=== PATIENT | female | born 1935 | race Caucasian/White ===

== ENCOUNTER → 2016-04-03 | Outpatient (CLI) | payer OTHER, MEDICARE ==
[~2016-04-03] MED LIST: ASPI81TA28 PO; ATOR-24 PO; CEPH500C2 PO; CLOP1TAB15 PO; DIGO0.122 PO; DILT-115 PO; EPP3/2 INJ; FRS/40 PO; GLIM1TAB PO; IPRA1AER2 INH; METO1TAB69 PO; SPIR25TA PO; WARF5TAB90 PO
[2016-04-03 14:49] LABS: ALT/SGPT 24 U/L (12-78); BLOOD UREA NITROGEN 16 mg/dl (7-18); BUN/CREATININE RATIO 14.3 (10-20); CALCIUM 8.9 mg/dl (8.5-10.1); CARBON DIOXIDE 23 mmol/L (21-32); CHLORIDE 107 mmol/L (98-107); GLUCOSE 226 mg/dl (70-99); POTASSIUM 4.4 mmol/L (3.5-5.1); SODIUM 142 mmol/L (136-145)
[2016-04-03 14:59] LABS: ALB/GLOB RATIO 0.9 (0.9-2); ALKALINE PHOSPHATASE 92 U/L (45-117); AST/SGOT 19 U/L (15-37)
[2016-04-03 15:13] LABS: BASO % 0.2 %; BASO ABS # 0.02 K/uL (0-0.2); COMPLETE YES; HEMATOCRIT 38.2 % (37-47); IG% 0.1 %; LYMPH % 23.9 %; LYMPH ABS # 2.09 K/uL (1.2-3.4); MEAN CELL VOLUME 83.8 fL (80-100); MEAN CORPUSCULAR HGB CONC 32.2 g/dl (32-36); MEAN PLATELET VOLUME 11.8 fL (7.4-10.4); MONO % 7.8 %; PLATELET COUNT 153 K/uL (130-400); RED BLOOD COUNT 4.56 M/uL (4.2-5.4); WHITE BLOOD COUNT 8.74 K/uL (4.8-10.8)
== END | disposition home or self-care (01) ==
LOC: C.LAB1850 12:50
PROVIDERS: ATTEND Internal Medicine Cardiovascular Disease
DX: I50.9 Heart failure, unspecified (principal); R53.83 Other fatigue; Z51.81 Encounter for therapeutic drug level monitoring; Z79.899 Other long term (current) drug therapy

== ENCOUNTER → 2016-06-01 | Outpatient (CLI) | payer OTHER, MEDICARE ==
[~2016-06-01] MED LIST changes: -CEPH500C2 PO
[2016-06-01 15:01] LABS: ESTIMATED AVERAGE GLUCOSE 217 mg/dl; HA1C FLAG Normal (Normal)
== END | disposition home or self-care (01) ==
LOC: C.LAB1850 13:12
PROVIDERS: ATTEND Internal Medicine
DX: E11.9 Type 2 diabetes mellitus without complications (principal)

== ENCOUNTER → 2016-07-27 | Outpatient (CLI) | payer OTHER, MEDICARE ==
[~2016-07-27] MED LIST changes: +METO100T44 PO; -METO1TAB69 PO
--- NOTE | 2016-08-02 13:20 | CODING QUERY MEDICAL NECESSITY ---
CQSUPPORTING DIAGNOSIS NEEDED A supporting diagnosis is required for the test/procedure performed on this patient in order for us to be reimbursed by the patient's insurance. Please provide a supporting diagnosis for the following test/procedure listed below next to the test name along with your signature. *If there is no additional diagnosis for this patient that would support the following test/procedure please document that below next to the test/procedure. Test(s)/Procedure(s) that require a supporting diagnosis: DOS 07/27/16 GLYCATED HEMOGLOBIN Provider Signature: Date: Thank you Julia Rojas [employer] Once completed, please kindly fax back to [phone] For questions please call [phone]
== END | disposition home or self-care (01) ==
LOC: C.LAB1850 13:31
PROVIDERS: ATTEND Internal Medicine
DX: E78.5 Hyperlipidemia, unspecified (principal); E11.9 Type 2 diabetes mellitus without complications

== ENCOUNTER → 2016-09-11 | Outpatient (CLI) | payer OTHER, MEDICARE ==
[~2016-09-11] MED LIST changes: -METO100T44 PO; +METO1TAB69 PO
[2016-09-11 14:48] LABS: BASO % 0.2 %; BASO ABS # 0.02 K/uL (0-0.2); COMPLETE YES; EOS % 1.4 %; HEMATOCRIT 41.1 % (37-47); IG% 0.2 %; LYMPH % 23.8 %; LYMPH ABS # 1.91 K/uL (1.2-3.4); MEAN CELL VOLUME 84.7 fL (80-100); MEAN CORPUSCULAR HEMOGLOBIN 27.2 pg (25-34); MEAN CORPUSCULAR HGB CONC 32.1 g/dl (32-36); MEAN PLATELET VOLUME 11.6 fL (7.4-10.4); MONO % 8.9 %; NEUT % 65.5 %; PLATELET COUNT 177 K/uL (130-400); RED BLOOD COUNT 4.85 M/uL (4.2-5.4); WHITE BLOOD COUNT 8.02 K/uL (4.8-10.8)
[2016-09-11 15:46] LABS: ALT/SGPT 32 U/L (12-78); AST/SGOT 21 U/L (15-37); BLOOD UREA NITROGEN 14 mg/dl (7-18); BUN/CREATININE RATIO 15.1 (10-20); CALCIUM 9.2 mg/dl (8.5-10.1); CARBON DIOXIDE 23 mmol/L (21-32); CHLORIDE 109 mmol/L (98-107); CHOLESTEROL 113 mg/dl (0-200); CREATININE 0.94 mg/dl (0.60-1.20); GLUCOSE 192 mg/dl (70-99); POTASSIUM 4.1 mmol/L (3.5-5.1); SODIUM 141 mmol/L (136-145); TRIGLYCERIDES 168 mg/dl (0-150); VERY LOW DENSITY LIPOPROT CALC 34 mg/dl
[2016-09-11 15:49] LABS: CHOLESTEROL/HDL RATIO 3.3; HDL CHOLESTEROL 34 mg/dl; LDL CHOLESTEROL CALCULATED 45 mg/dl
== END | disposition home or self-care (01) ==
LOC: C.LAB1850 12:39
PROVIDERS: ATTEND Internal Medicine
DX: E11.9 Type 2 diabetes mellitus without complications (principal)

== ENCOUNTER → 2017-02-25 | Outpatient (CLI) | payer OTHER, MEDICARE ==
[~2017-02-25] MED LIST changes: +METO100T44 PO; -METO1TAB69 PO
[2017-02-25 15:37] LABS: BASO % 0.3 %; BASO ABS # 0.03 K/uL (0-0.2); COMPLETE YES; EOS % 1.2 %; HEMATOCRIT 41.2 % (37-47); IG% 0.2 %; LYMPH % 23.5 %; LYMPH ABS # 2.27 K/uL (1.2-3.4); MEAN CELL VOLUME 86.2 fL (80-100); MEAN CORPUSCULAR HGB CONC 32.5 g/dl (32-36); MEAN PLATELET VOLUME 11.2 fL (7.4-10.4); MONO % 8.2 %; NEUT % 66.6 %; PLATELET COUNT 162 K/uL (130-400); RED BLOOD COUNT 4.78 M/uL (4.2-5.4); WHITE BLOOD COUNT 9.68 K/uL (4.8-10.8)
[2017-02-25 15:49] LABS: ALT/SGPT 25 U/L (12-78); AST/SGOT 18 U/L (15-37); BLOOD UREA NITROGEN 11 mg/dl (7-18); BUN/CREATININE RATIO 11.7 (10-20); CALCIUM 9.1 mg/dl (8.5-10.1); CARBON DIOXIDE 26 mmol/L (21-32); CHLORIDE 107 mmol/L (98-107); CREATININE 0.96 mg/dl (0.60-1.20); GLUCOSE 207 mg/dl (70-99); POTASSIUM 3.8 mmol/L (3.5-5.1); SODIUM 137 mmol/L (136-145)
[2017-02-25 15:59] LABS: CHOLESTEROL 113 mg/dl (0-200); CHOLESTEROL/HDL RATIO 2.8; HDL CHOLESTEROL 41 mg/dl; LDL CHOLESTEROL CALCULATED 39 mg/dl; TRIGLYCERIDES 163 mg/dl (0-150); VERY LOW DENSITY LIPOPROT CALC 33 mg/dl
[2017-02-26 07:18] LABS: ESTIMATED AVERAGE GLUCOSE 266 mg/dl; HA1C FLAG Normal (Normal)
== END | disposition home or self-care (01) ==
LOC: C.LAB1850 14:28
PROVIDERS: ATTEND Internal Medicine
DX: E78.5 Hyperlipidemia, unspecified (principal)

== ENCOUNTER → 2017-04-15 | Outpatient (CLI) | payer OTHER, MEDICARE ==
[2017-04-15 15:48] LABS: BLOOD UREA NITROGEN 16 mg/dl (7-18); CALCIUM 9.2 mg/dl (8.5-10.1); CARBON DIOXIDE 26 mmol/L (21-32); GLUCOSE 274 mg/dl (70-99); POTASSIUM 4.2 mmol/L (3.5-5.1); SODIUM 137 mmol/L (136-145)
== END | disposition home or self-care (01) ==
LOC: C.LAB1850 12:25
PROVIDERS: ATTEND Internal Medicine Cardiovascular Disease
DX: R53.83 Other fatigue (principal); I50.32 Chronic diastolic (congestive) heart failure

== ENCOUNTER → 2017-05-13 | Outpatient (CLI) | payer OTHER, MEDICARE | END | disposition home or self-care (01) | LOC: C.LAB1850 12:27 | PROVIDERS: ATTEND Internal Medicine | DX: E11.9 Type 2 diabetes mellitus without complications (principal) ==

== ENCOUNTER → 2017-06-28 | Outpatient (CLI) | payer OTHER, MEDICARE ==
[2017-06-28 15:50] LABS: HEMATOCRIT 40.5 % (37-47); HEMOGLOBIN 13.1 g/dL (12.0-16.0); MEAN CELL VOLUME 83.5 fL (80-100); MEAN CORPUSCULAR HGB CONC 32.3 g/dl (32-36); MEAN PLATELET VOLUME 11.9 fL (7.4-10.4); PLATELET COUNT 136 K/uL (130-400); RED CELL DISTRIBUTION WIDTH CV 14.8 % (11.5-14.5); RED CELL DISTRIBUTION WIDTH SD 45.4 fL (36.4-46.3)
[2017-06-28 16:10] LABS: ALT/SGPT 24 U/L (12-78); AST/SGOT 17 U/L (15-37); BLOOD UREA NITROGEN 15 mg/dl (7-18); CALCIUM 9.7 mg/dl (8.5-10.1); CARBON DIOXIDE 24 mmol/L (21-32); CREATININE 0.99 mg/dl (0.60-1.20); GLUCOSE 316 mg/dl (70-99); SODIUM 135 mmol/L (136-145)
[2017-06-29 07:22] LABS: HEMOGLOBIN A1C 12.9 % (4.5-5.6)
== END | disposition home or self-care (01) ==
LOC: C.LAB1850 14:36
PROVIDERS: ATTEND Internal Medicine
DX: I50.32 Chronic diastolic (congestive) heart failure (principal); E11.9 Type 2 diabetes mellitus without complications

== ENCOUNTER 2017-11-07 11:06 | Inpatient (IN) | payer OTHER, MEDICARE ==
[2017-11-07] VITALS (31 sets, daily range): BP systolic 69–124; BP diastolic 37–91; PULSE 84–157; TEMP 36.4–36.8; O2SAT 96–100; Ht 166.4 cm; Wt 88.5 kg
[~2017-11-07] VITALS: Ht 166.4 cm; Wt 88.5 kg
[2017-11-07] MEDS ORDERED: SODIUM CHLORIDE 0.9% 1000ML 2,000 ML IV STA (11:24)
[2017-11-07 11:37] LABS: BASO % 0.2 %; BASO ABS # 0.02 K/uL (0-0.2); EOS % 1.1 %; HEMATOCRIT 27.3 % (37-47); HEMOGLOBIN 8.8 g/dL (12.0-16.0); IG# 0.01 K/uL (0.00-0.02); LYMPH % 21.6 %; LYMPH ABS # 2.01 K/uL (1.2-3.4); MEAN CELL VOLUME 89.5 fL (80-100); MEAN CORPUSCULAR HEMOGLOBIN 28.9 pg (25-34); MEAN CORPUSCULAR HGB CONC 32.2 g/dl (32-36); MEAN PLATELET VOLUME 12.3 fL (7.4-10.4); MONO % 4.8 %; MONO ABS # 0.45 K/uL (0.11-0.59); NEUT % 72.2 %; PLATELET COUNT 204 K/uL (130-400); RED CELL DISTRIBUTION WIDTH SD 59.2 fL (36.4-46.3); WHITE BLOOD COUNT 9.29 K/uL (4.8-10.8)
[2017-11-07 11:46] LABS: INR 1.1 (0.9-1.1); PTT PATIENT 29.6 SECONDS (21.0-31.0)
[2017-11-07 11:51] LABS: ALBUMIN 2.1 gm/dl (3.4-5.0); CALCIUM 8.5 mg/dl (8.5-10.1); CREATININE 0.92 mg/dl (0.60-1.20); TOTAL PROTEIN 5.4 gm/dl (6.4-8.2)
[2017-11-07] MEDS ORDERED: LVMI SC (12:00)
[2017-11-07] MEDS ORDERED: APIX1TAB3 PO (12:00)
[2017-11-07] MEDS ORDERED: ATOR-24 PO (12:00)
[2017-11-07] MEDS ORDERED: ASPI81TA28 PO (12:00)
[2017-11-07] MEDS ORDERED: BCTROWC EXT (12:00)
[2017-11-07] MEDS ORDERED: DILT240C57 PO (12:00)
[2017-11-07] MEDS ORDERED: ACET-1693 PO (12:00)
[2017-11-07] MEDS ORDERED: METO50TA8 PO (12:00)
[2017-11-07] MEDS ORDERED: ICU PROTOCOL FOR HYPERGLYCEMIA PRN (12:15)
--- NOTE | 2017-11-07 12:30 | DIAGNOSTIC IMAGING REPORT ---
SINGLE VIEW CHEST CLINICAL HISTORY: GI bleeding. FINDINGS: An AP, portable, upright chest radiograph is compared to study dated 10/22/2015. The examination is degraded by portable technique and patient rotation. The heart is enlarged and there is atherosclerotic calcification of the thoracic aorta. The pulmonary vascular structures noncongested. Chronic interstitial thickening is similar to previous. Left basilar atelectasis is noted. No airspace consolidation or large pleural effusion is identified. No pneumothorax is seen. The skeletal structures are osteopenic. Advanced degenerative change is seen in the shoulders. An indeterminant catheter projects over the upper abdomen. IMPRESSION: Cardiomegaly with no acute cardiopulmonary abnormality. Electronically signed by: Bret Jaffe M.D. 11/07/2017 12:29 PM Dictated Date/Time: 11/07/2017 12:28 PM
[2017-11-07] MEDS ORDERED: PANTOprazole INJ 80 MG in DEXTROSE 5% 100ML IV ONE (13:00)
--- NOTE | 2017-11-07 13:22 | History and Physical ---
History & Physical Date & Time of Service: Nov 07, 2017 at 13:00 Chief Complaint: Active Gi Bleed/Syncope Primary Care Physician: Jeison Shaver D.OKeshav History of Present Illness Source: patient, family Past Medical/Surgical History Medical Problems: (1) A-fib (2) Acute WV, inferior wall (3) Acute WV, lateral wall (4) Acute WV, true posterior wall (5) Atrial fibrillation (6) Atrial fibrillation with RVR (7) Dyspnea on exertion (8) Gastric outlet obstruction (9) GIB (gastrointestinal bleeding) (10) HTN (hypertension) (11) Kidney disease (12) Left arm pain (13) Left sided chest pain (14) Malignant hypertension (15) Pancreatic adenocarcinoma (16) Syncope and collapse (17) UTI (urinary tract infection) (18) Vomiting Surgical Problems: (1) S/P Family History Patient reports no known family medical history. Social History Smoking Status: Never Smoker Smokeless Tobacco Use: No Alcohol Use: occasionally Drug Use: none Marital Status: Housing status: lives with family Immunizations History of Influenza Vaccine: Yes Influenza Vaccine Date: Dec 27, 2011 History of Tetanus Vaccine?: Yes History of Pneumococcal: Yes Pneumococcal Date: Mar 28, 2012 History of Hepatitis B Vaccine: Unknown Allergies Coded Allergies: BEE STING (Verified Allergy, Severe, anaphylaxis, 11/07/17) ARIS Inhibitors (Verified Allergy, Unknown, UNKNOWN, 11/07/17) Iodine (Verified Allergy, Unknown, 11/07/17) Penicillins (Verified Allergy, Unknown, 11/07/17) Sulfa Drugs (Verified Allergy, Unknown, 11/07/17) Home Medications Scheduled Apixaban (Eliquis), 5 MG PO BID Aspirin (Aspirin Ec), 81 MG PO DAILY Atorvastatin (Lipitor), 40 MG PO DAILY Diltiazem Hcl Coated Beads (Cardizem Cd), 240 MG PO DAILY Epinephrine (Epipen 2-Edu), 1 DOSE INJ PRN UD Insulin Detemir (Levemir), 17 UNITS SC HS Metoprolol Succ (Toprol Xl) (Toprol-Xl), 50 MG PO BID Mupirocin (Bactroban 2% Oint), 0.5 GM EXT BID Scheduled PRN Acetaminophen Tab (Tylenol), 650 MG PO Q6 PRN for Pain Review of Systems Constitutional: + weakness, + problem reported (Syncope and [place]) Respiratory: + shortness of breath Cardiovascular: + orthopnea, + problem reported (Syncope and [place]) Abdomen: + nausea, + GI bleeding Neurologic: + weakness, + balance problems Physical Exam Vital Signs Date Time Temp Pulse Resp B/P (MAP) Pulse Ox O2 Delivery O2 Flow Rate FiO2 11/07/17 12:35 36.7 84 16 112/66 11/07/17 12:34 36.7 89 16 112/66 11/07/17 12:10 36.6 101 17 102/54 98 11/07/17 11:36 113 14 97 Room Air 11/07/17 11:31 100 21 97 Room Air 11/07/17 11:30 100/66 11/07/17 11:28 108/65 11/07/17 11:26 100 21 97 Room Air 11/07/17 11:25 103 11/07/17 11:21 119 17 94 Room Air 11/07/17 11:18 97/64 11/07/17 11:16 104 18 95 Room Air 11/07/17 11:15 97 Room Air 11/07/17 11:09 36.7 113 20 89/54 95 Room Air 11/07/17 11:09 89/54 She is an 82-year-old female with significant past medical history of diabetes type 2 on insulin, paroxysmal atrial fibrillation on Xarelto, history of WV status post stent placement, and also recently diagnosed to adenocarcinoma of the pancreas status post biliary drainage tube placed has been found to be bleeding per rectum this morning. She was feeling unwell in her abdomen and wanted to go to bathroom and felt dizzy while standing and almost about to collapse. She did not lose consciousness but the family member noticed fresh blood pouring down the legs on either side from that point and she was brought into ER for further evaluation. She denied to have any abdominal pain, did have some nausea but no vomiting, denies any chest pain palpitation, she is usually constipated but removed her bowel yesterday and that was normal. In the ER she was noted to be hypotensive and tachycardic with a hemoglobin of 8 from that point the the ER physician did talk to the protector plate attacher, GI provider and anticoagulation specialist for recommendation. She was given intravenous fluid and also going to get fresh frozen plasma and blood transfusion and was transferred to ICU for continued care. General Appearance: + moderate distress Head: normocephalic Eyes: + pertinent finding (Pale looking and Jaundiced) Neck: supple Respiratory/Chest: normal breath sounds Cardiovascular: + irregularly irregular Abdomen/GI: + tenderness, + pertinent finding (Has Billiary drainage tube in situ) Back: normal inspection Extremities/Musculoskelatal: + pedal edema Neurologic/Psych: alert, oriented x 3 Skin: + pallor Diagnostics Laboratory Results Results Past 24 Hours Test 11/07/17 11:15 Range/Units White Blood Count 9.29 4.8-10.8 K/uL Red Blood Count 3.05 4.2-5.4 M/uL Hemoglobin 8.8 12.0-16.0 g/dL Hematocrit 27.3 37-47 % Mean Corpuscular Volume 89.5 80-100 fL Mean Corpuscular Hemoglobin 28.9 25-34 pg Mean Corpuscular Hemoglobin Concent 32.2 32-36 g/dl Platelet Count 204 130-400 K/uL Mean Platelet Volume 12.3 7.4-10.4 fL Neutrophils (%) (Auto) 72.2 % Lymphocytes (%) (Auto) 21.6 % Monocytes (%) (Auto) 4.8 % Eosinophils (%) (Auto) 1.1 % Basophils (%) (Auto) 0.2 % Neutrophils # (Auto) 6.70 1.4-6.5 K/uL Lymphocytes # (Auto) 2.01 1.2-3.4 K/uL Monocytes # (Auto) 0.45 0.11-0.59 K/uL Eosinophils # (Auto) 0.10 0-0.5 K/uL Basophils # (Auto) 0.02 0-0.2 K/uL RDW Standard Deviation 59.2 36.4-46.3 fL RDW Coefficient of Variation 18.0 11.5-14.5 % Immature Granulocyte % (Auto) 0.1 % Immature Granulocyte # (Auto) 0.01 0.00-0.02 K/uL Red Blood Cell Morphology Unremarkable Prothrombin Time 11.5 9.0-12.0 SECONDS Prothromb Time International Ratio 1.1 0.9-1.1 Activated Partial Thromboplast Time 29.6 21.0-31.0 SECONDS Partial Thromboplastin Ratio 1.1 Sodium Level 137 136-145 mmol/L Potassium Level 4.0 3.5-5.1 mmol/L Chloride Level 107 98-107 mmol/L Carbon Dioxide Level 21 21-32 mmol/L Anion Gap 9.0 3-11 mmol/L Blood Urea Nitrogen 20 7-18 mg/dl Creatinine 0.92 0.60-1.20 mg/dl Est Creatinine Clear Calc Drug Dose 53.9 ml/min Estimated GFR () 67.2 Estimated GFR (Non- 58.0 BUN/Creatinine Ratio 22.0 10-20 Random Glucose 242 70-99 mg/dl Calcium Level 8.5 8.5-10.1 mg/dl Magnesium Level 2.0 1.8-2.4 mg/dl Total Bilirubin 2.0 0.2-1 mg/dl Aspartate Amino Transf (AST/SGOT) 35 15-37 U/L Alanine Aminotransferase (ALT/SGPT) 39 12-78 U/L Alkaline Phosphatase 232 45-117 U/L Troponin I 0.017 0-0.045 ng/ml Total Protein 5.4 6.4-8.2 gm/dl Albumin 2.1 3.4-5.0 gm/dl Globulin 3.3 2.5-4.0 gm/dl Albumin/Globulin Ratio 0.6 0.9-2 Lipase 135 73-393 U/L Diagnostic Radiology CXR-Cardiomegaly,No CHF and or Infiltrations EKG EKG-AF,Non specific ST-T changes Impression Assessment and Plan Acute GI bleed Likely lower GI and could be diverticular bleed complicated by use of Xarelto Could be upper GI source as well,given the history of pancreatic cancer She will be admitted to ICU Blood transfusion as needed and we will check H&H q. 4 hourly Protonix drip for now GI consultation Atrial fibrillation on Xarelto The rate is controlled now The bleeding may be complicated by general We will hold it for now The case was discussed with Dr. lissett barillas and advised to have fresh frozen plasma and blood as needed Adenocarcinoma the pancreas with status post biliary drainage tube placement Diagnosis in October of this year Has been under evaluation from [facility] Awaiting for future chemotherapy Diabetes type 2 We will hold insulin now Putting her on sliding scale coverage Check hemoglobin A1c CAD status post WV and status post cardiac stent placement No acute symptoms at this time We will start beta-patt and possibly aspirin as soon as possible DVT prophylaxis SCDs CODE STATUS: Full code The case was discussed with the patient and the family members in detail In my clinical assessment the beneficially meets criteria as per CMS for 2 midnight stay in the hospital Resuscitation Status VTE Prophylaxis Will order VTE Prophylaxis: No Reason for no VTE drug order: Contraindicated Reason no Mechanical VTE Order: Treatment not tolerated
--- NOTE | 2017-11-07 14:05 | Gastrointestinal Consultation ---
Gastrointestinal Consultation Date of Consultation: Nov 07, 2017 Attending Physician: Wayne Manrique Consulting Physician: Jodi Chávez Reason for Consultation: GI bleed History of Present Illness Patient is a 82 year old female who presented to ED w rectal bleeding and syncope starting this AM. She has a hx of pancreas head adenocarcinoma, intra/ extrahepatic biliary and pancreas duct dilation. EGD/EUS/ERCP done by Dr. Chávez on 10/18/17. However due to acquired duodenal stenosis, scope wasn't able to be advanced to ampulla area. She then proceed to go to [facility] and had repeated ERCP attempted on 10/25 but failed as well per daughter's report. She then had IR percutaneous drainage placed by IR in [facility] on 10/26. Her LFTs are trending down. Per family she just had f/u in [facility] w Surgical/Oncology, Heme/Onc to determine further plans for the pancreas ca. She was on Coumadin for years for Afib, then changed to Eliquis 1 months ago. Eliquis stopped on 10/16, then resumed 1 week ago. Also on Plavix for cardiac stent. She is not on any NSAIDs. Family brought her into ED after noted her to start having profuse rectal bleeding this AM, and she has presyncopal symptoms. BP low at 80s/40s, improved to 112/66 after 1L NS resuscitation. She currently is getting 1U FFP and PRBC. H/H 8.8/, baseline Hgb 12. INR 1.1. LFTs: Tbili 2 , AST 35, ALT 39, AP 135. Past Medical/Surgical History Medical Problems: (1) Acute WI, inferior wall Status: Acute (2) Acute WI, lateral wall Status: Acute (3) Acute WI, true posterior wall Status: Acute (4) Atrial fibrillation with RVR Status: Acute (5) Dyspnea on exertion Status: Acute (6) Left arm pain Status: Acute (7) Left sided chest pain Status: Acute (8) UTI (urinary tract infection) Status: Acute Past Medical History: See above, also HTN, Kidney disease, CAD, Hx of PUD, kidney calculus, DM II Past Surgical History: TKR, Csection, tonsillectomy, adenoidectomy, strabissmus surgery, cardiac stent placement. Family History Patient reports no known family medical history. Social History Smoking Status: Never Smoker Alcohol Use: none Drug Use: none Marital Status: Housing Status: lives with family Allergies Coded Allergies: BEE STING (Verified Allergy, Severe, anaphylaxis, 11/07/17) ARIS Inhibitors (Verified Allergy, Unknown, UNKNOWN, 11/07/17) Iodine (Verified Allergy, Unknown, 11/07/17) Penicillins (Verified Allergy, Unknown, 11/07/17) Sulfa Drugs (Verified Allergy, Unknown, 11/07/17) Current Medications Home Meds and Scripts Medications Dose Route/Sig Max Daily Dose Days Date Category Toprol-Xl (Metoprolol Succinate) 50 Mg Tabcr 50 Mg PO BID 11/07/17 Reported Levemir (Insulin Detemir) 100 Units/Ml Inj 17 Units SC HS 11/07/17 Reported Cardizem Cd (Diltiazem Hcl Coated Beads) 240 Mg Cap 240 Mg PO DAILY 11/07/17 Reported Lipitor (Atorvastatin Calcium) 40 Mg Tab 40 Mg PO DAILY 11/07/17 Reported Eliquis (Apixaban) 5 Mg Tab 5 Mg PO BID 11/07/17 Reported Bactroban 2% Oint (Mupirocin) 66 Appln/22 Gm Oint 0.5 Gm EXT BID 11/07/17 Reported Tylenol (Acetaminophen) 325 Mg Tab 650 Mg PO Q6 PRN 11/07/17 Reported Aspirin Ec (Aspirin) 81 Mg Tab 81 Mg PO DAILY 11/07/17 Reported Epipen 2-Edu (Epinephrine) 0.3 Mg Inj 1 Dose INJ PRN UD 08/03/15 Reported Review of Systems Constitutional: + weakness Respiratory: No cough, No shortness of breath Cardiac: No chest pain Abdomen: + GI bleeding, No pain, No nausea, No vomiting Endo: + fatigue Skin: No rash, No itch Physical Exam Date Time Temp Pulse Resp B/P (MAP) Pulse Ox O2 Delivery O2 Flow Rate FiO2 11/07/17 13:38 36.5 118 12 124/91 100 11/07/17 13:05 90 16 106/71 98 11/07/17 13:02 36.8 90 16 106/71 11/07/17 13:01 36.8 108 16 106/71 11/07/17 12:35 36.7 84 16 112/11/07/17 12:34 36.7 89 16 112/66 8/23/18 12:10 36.6 101 17 102/54 98 11/07/17 11:36 113 14 97 Room Air 11/07/17 11:31 100 21 97 Room Air 11/07/17 11:30 100/66 11/07/17 11:28 108/65 11/07/17 11:26 100 21 97 Room Air 11/07/17 11:25 103 11/07/17 11:21 119 17 94 Room Air 11/07/17 11:18 97/64 11/07/17 11:16 104 18 95 Room Air 11/07/17 11:15 97 Room Air 11/07/17 11:09 36.7 113 20 89/54 95 Room Air 11/07/17 11:09 89/54 General Appearance: + mild distress (appears weak) Neck: supple, no JVD, trachea midline Respiratory/Chest: no respiratory distress, no accessory muscle use, + decreased breath sounds Cardiovascular: regular rate, rhythm, no gallop, no murmur Abdomen: non tender, soft, + abnormal bowel sounds (hypoactive bowel sounds ), + pertinent finding (residual marroon colored blood noted on legs and bedsheet; IR placed drain to upper mid abd area) Extremities: normal inspection, no pedal edema, no calf tenderness Neurologic/Psych: alert, + depressed affect Skin: no rash, + pallor Laboratory Results Last 24 Hours Test 11/07/17 11:15 White Blood Count 9.29 K/uL Red Blood Count 3.05 M/uL Hemoglobin 8.8 g/dL Hematocrit 27.3 % Mean Corpuscular Volume 89.5 fL Mean Corpuscular Hemoglobin 28.9 pg Mean Corpuscular Hemoglobin Concent 32.2 g/dl Platelet Count 204 K/uL Mean Platelet Volume 12.3 fL Neutrophils (%) (Auto) 72.2 % Lymphocytes (%) (Auto) 21.6 % Monocytes (%) (Auto) 4.8 % Eosinophils (%) (Auto) 1.1 % Basophils (%) (Auto) 0.2 % Neutrophils # (Auto) 6.70 K/uL Lymphocytes # (Auto) 2.01 K/uL Monocytes # (Auto) 0.45 K/uL Eosinophils # (Auto) 0.10 K/uL Basophils # (Auto) 0.02 K/uL RDW Standard Deviation 59.2 fL RDW Coefficient of Variation 18.0 % Immature Granulocyte % (Auto) 0.1 % Immature Granulocyte # (Auto) 0.01 K/uL Red Blood Cell Morphology Unremarkable Prothrombin Time 11.5 SECONDS Prothromb Time International Ratio 1.1 Activated Partial Thromboplast Time 29.6 SECONDS Partial Thromboplastin Ratio 1.1 Sodium Level 137 mmol/L Potassium Level 4.0 mmol/L Chloride Level 107 mmol/L Carbon Dioxide Level 21 mmol/L Anion Gap 9.0 mmol/L Blood Urea Nitrogen 20 mg/dl Creatinine 0.92 mg/dl Est Creatinine Clear Calc Drug Dose 53.9 ml/min Estimated GFR () 67.2 Estimated GFR (Non- 58.0 BUN/Creatinine Ratio 22.0 Random Glucose 242 mg/dl Calcium Level 8.5 mg/dl Magnesium Level 2.0 mg/dl Total Bilirubin 2.0 mg/dl Aspartate Amino Transf (AST/SGOT) 35 U/L Alanine Aminotransferase (ALT/SGPT) 39 U/L Alkaline Phosphatase 232 U/L Troponin I 0.017 ng/ml Total Protein 5.4 gm/dl Albumin 2.1 gm/dl Globulin 3.3 gm/dl Albumin/Globulin Ratio 0.6 Lipase 135 U/L Impression Patient is a 82 year old female w rectal bleeding, anemia. She was recently diagnosed w pancreas head adenocarcinoma, failed ERCP cannulation due to duodenal stenosis when it was attempted on 10/18/17. She went to [facility] for another attempted ERCP on 10/25 which failed as well, eventually needed IR placed percutaneous drain. She had been on Eliquis and Plavix for hx of cardiac stent & Afib. Eliquis was just restarted about 1 week ago. Denies NSAIDs. She did have hx of PUD in . EGD on 10/18/17 normal. DDx: bleeding from duodenal stricture/mass area, PUD, ischemic colitis Plan - PPI bolus and gtt for now - Resuscitation w IVF,blood transfusions, FFP - Keep NPO for EGD tomorrow by Dr. Chávez - Obtain Tagged RBC GI bleeding scan. I saw and evaluated the patient with Ms. Arreguin. The patient is known to our service from prior evaluations. 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 She had had a prior upper endoscopy with Dr. Quintanilla several years ago at which time a dilation was performed. During an attempted seizure several weeks ago I was only able to get into the second portion of the duodenum 1 time for a very short period of time due to stricturing and mass within the bulb and duodenum. She underwent an evaluation at the [facility] where they described having similar problems. On the morning of her presentation, the patient was found to be hypotensive and had a large amount of bright red blood per rectum. Is brought to the hospital by her family. She has a history of atrial fibrillation and is presently on Eloquis as directed by her cardiology provider. Physical examination Pale appearing female in mild distress No abdominal tenderness Impression: Patient presenting with hematochezia unclear if the etiology is upper digestive or perhaps diverticular given the red blood. Given the patient' s stricture I am not certain that an upper endoscopy at this that he would be beneficial. I would suggest that we do further evaluation with a tagged red blood cell study to try and localize the bleeding site. If the bleeding site is found to be within the stomach perhaps an upper endoscopy could be provided at this facility after the Eliquis is been further metabolized. Upon talking with the patient and her family she does appear to weak to tolerate a bowel prep at the present time. Recommendations N.p.o. Protonix drip Transfuse as needed Tagged red blood cell study ordered Please call with any questions or concerns.
[2017-11-07] MEDS: PANTOprazole INJ 40 MG in DEXTROSE 5% 100ML IV SCH ×2 (15:01→21:52)
--- NOTE | 2017-11-07 16:01 | Critical Care Consultation ---
Critical Care Consultation Date of Consultation: Nov 07, 2017. Attending Physician: Wayne Manrique M.D. Reason for Consultation: Rectal bleeding History of Present Illness Patient is an 82-year-old woman who is been admitted via the emergency department with profuse rectal bleeding and a syncopal episode starting this morning. Patient was diagnosed with adenocarcinoma of the pancreatic head recently after developing painless jaundice in August. 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 She was then sent to the [facility] for ERCP but again the procedure was not possible and so she had a percutaneous biliary drain placed at [facility] on October 26 and was discharged from there 7 days ago. Her daughter states that on presentation her bilirubin was 14 but had decreased to 4 on discharge and at subsequent follow-up several days ago was down to 2. The patient has a history of atrial fibrillation for which she is on Eliquis and a cardiac stent for which he is on Plavix. On presentation to the emergency room her systolic blood pressure was in the 80s and her heart rate was in the 140s. She was fluid resuscitated and she was given 2 units of FFP and is now just finishing up her second of 2 units of packed red blood cells. She says she is feeling better. She denies any abdominal pain, chest pain, or dyspnea. She has been seen by GI, Dr. Chávez, who started Protonix drip and recommended ICU admission for resuscitation prior to EGD. Past Medical/Surgical History Recently diagnosed pancreatic carcinoma Previous myocardial infarction status post stenting Chronic atrial fibrillation Chronic kidney disease Type 2 diabetes on insulin History of nephrolithiasis History of peptic ulcer disease Family History Patient reports no known family medical history. Social History Smoking Status: Never Smoker Smokeless Tobacco Use: No Alcohol Use: occasionally Drug Use: none Marital Status: Housing Status: lives with family Allergies Coded Allergies: BEE STING (Verified Allergy, Severe, anaphylaxis, 11/07/17) ARIS Inhibitors (Verified Allergy, Unknown, UNKNOWN, 11/07/17) Iodine (Verified Allergy, Unknown, 11/07/17) Penicillins (Verified Allergy, Unknown, 11/07/17) Sulfa Drugs (Verified Allergy, Unknown, 11/07/17) Home Medications Scheduled Apixaban (Eliquis), 5 MG PO BID Aspirin (Aspirin Ec), 81 MG PO DAILY Atorvastatin (Lipitor), 40 MG PO DAILY Diltiazem Hcl Coated Beads (Cardizem Cd), 240 MG PO DAILY Epinephrine (Epipen 2-Edu), 1 DOSE INJ PRN UD Insulin Detemir (Levemir), 17 UNITS SC HS Metoprolol Succ (Toprol Xl) (Toprol-Xl), 50 MG PO BID Mupirocin (Bactroban 2% Oint), 0.5 GM EXT BID Scheduled PRN Acetaminophen Tab (Tylenol), 650 MG PO Q6 PRN for Pain Current Inpatient Medications Current Inpatient Medications Medications (Trade) Dose Ordered Sig/Joan Route Start Time Stop Time Status Last Admin Dose Admin Miscellaneous Information (Icu Protocol For Hyperglycemia) 1 ea PRN PRN N/A 11/07/17 12:15 11/09/17 12:14 Bacitracin (Bacitracin Oint) 1 appln BID EXT 11/07/17 21:00 12/07/17 20:59 Pantoprazole Sodium 40 mg/ Dextrose 100 ml @ 20 mls/hr Q5H IV 11/07/17 13:15 12/07/17 13:14 11/07/17 15:01 20 MLS/HR Review of Systems Constitutional: + weakness, + fatigue, No fever Eyes: No worsening of vision, No eye pain, No redness, No discharge, No diplopia, No problem reported Respiratory: + shortness of breath, + dyspnea on exertion, No cough, No sputum Cardiovascular: No orthopnea Abdomen: + GI bleeding Neurologic: No memory loss, No numbness/tingling Physical Exam Date Time Temp Pulse Resp B/P (MAP) Pulse Ox O2 Delivery O2 Flow Rate FiO2 11/07/17 15:09 36.6 120 12 103/66 100 11/07/17 15:00 36.6 101 18 103/66 (78) 100 Room Air 11/07/17 14:35 36.6 114 12 120/63 100 11/07/17 14:30 98 17 120/63 (82) 100 11/07/17 14:27 36.5 109 12 107/78 100 Room Air 11/07/17 14:07 36.6 105 12 102/66 100 11/07/17 14:00 36.5 17 102/66 (78) 100 Room Air 11/07/17 13:54 36.5 110 14 108/83 100 11/07/17 13:38 36.5 118 12 124/91 100 11/07/17 13:05 90 16 106/71 98 11/07/17 13:02 36.8 90 16 106/71 11/07/17 13:01 36.8 108 16 106/71 11/07/17 12:35 36.7 84 16 112/66 11/07/17 12:34 36.7 89 16 112/66 11/07/17 12:10 36.6 101 17 102/54 98 11/07/17 11:36 113 14 97 Room Air 11/07/17 11:31 100 21 97 Room Air 11/07/17 11:30 100/66 11/07/17 11:28 108/65 11/07/17 11:26 100 21 97 Room Air 11/07/17 11:25 103 11/07/17 11:21 119 17 94 Room Air 11/07/17 11:18 97/64 11/07/17 11:16 104 18 95 Room Air 11/07/17 11:15 97 Room Air 11/07/17 11:09 36.7 113 20 89/54 95 Room Air 11/07/17 11:09 89/54 General Appearance: thin, other (Jaundiced, chronically ill-appearing) Head: normocephalic Eyes: PERRLA, scleral icterus Neck: normal range of motion, no tenderness Respiratory: breath sounds normal, clear to auscultation Cardiovasular: regular rate/rhythm, no M/G/R Abdomen: non tender, normal bowel sounds, other (Left sided drain present) Laboratory Results Last 24 Hours Test 11/07/17 11:15 11/07/17 15:23 White Blood Count 9.29 K/uL Red Blood Count 3.05 M/uL Hemoglobin 8.8 g/dL Hematocrit 27.3 % Mean Corpuscular Volume 89.5 fL Mean Corpuscular Hemoglobin 28.9 pg Mean Corpuscular Hemoglobin Concent 32.2 g/dl Platelet Count 204 K/uL Mean Platelet Volume 12.3 fL Neutrophils (%) (Auto) 72.2 % Lymphocytes (%) (Auto) 21.6 % Monocytes (%) (Auto) 4.8 % Eosinophils (%) (Auto) 1.1 % Basophils (%) (Auto) 0.2 % Neutrophils # (Auto) 6.70 K/uL Lymphocytes # (Auto) 2.01 K/uL Monocytes # (Auto) 0.45 K/uL Eosinophils # (Auto) 0.10 K/uL Basophils # (Auto) 0.02 K/uL RDW Standard Deviation 59.2 fL RDW Coefficient of Variation 18.0 % Immature Granulocyte % (Auto) 0.1 % Immature Granulocyte # (Auto) 0.01 K/uL Red Blood Cell Morphology Unremarkable Prothrombin Time 11.5 SECONDS Prothromb Time International Ratio 1.1 Activated Partial Thromboplast Time 29.6 SECONDS Partial Thromboplastin Ratio 1.1 Sodium Level 137 mmol/L Potassium Level 4.0 mmol/L Chloride Level 107 mmol/L Carbon Dioxide Level 21 mmol/L Anion Gap 9.0 mmol/L Blood Urea Nitrogen 20 mg/dl Creatinine 0.92 mg/dl Est Creatinine Clear Calc Drug Dose 53.9 ml/min Estimated GFR () 67.2 Estimated GFR (Non- 58.0 BUN/Creatinine Ratio 22.0 Random Glucose 242 mg/dl Calcium Level 8.5 mg/dl Magnesium Level 2.0 mg/dl Total Bilirubin 2.0 mg/dl Aspartate Amino Transf (AST/SGOT) 35 U/L Alanine Aminotransferase (ALT/SGPT) 39 U/L Alkaline Phosphatase 232 U/L Troponin I 0.017 ng/ml Total Protein 5.4 gm/dl Albumin 2.1 gm/dl Globulin 3.3 gm/dl Albumin/Globulin Ratio 0.6 Lipase 135 U/L Bedside Glucose 211 mg/dl Assessment & Plan (1) GIB (gastrointestinal bleeding) Recheck CBC after second unit of packed red blood cells transfuse as needed to target hemoglobin 9 FFP completed Timing of EGD per GI Continue Protonix drip (2) Blood loss anemia Transfuse to hemoglobin of 9 (3) Pancreatic adenocarcinoma (4) Coronary artery disease Hold Plavix (5) Atrial fibrillation Hold Eliquis, rate control currently satisfactory
--- NOTE | 2017-11-07 16:16 | EMERGENCY ROOM VISIT NOTE ---
History Report prepared by Az: Emmanuel Tolentino Under the Supervision of: Dr. Bret Bauman M.D. First contact with patient: 11:10 Stated Complaint: ACTIVE GI BLEED/SYNCOPE History of Present Illness The patient is a 82 year old female who presents to the Emergency Room with complaints of active rectal bleeding. EMS reports that the patient had a syncopal episode this morning, and states that she began bleeding from her rectum. He notes a large amount of active hemorrhage. The patient's daughter reports that she is unsure if the patient lost consciousness, but states that she did not suffer any trauma for the event. She reports that the patient has pancreatic cancer. She states that the patient takes Eliquis for A-fib and has cardiac stents that were placed a couple years ago. She states that the patient took Eliquis last night, but does not believe she took any this morning. She denies a history of GI bleeding in the patient. She states that the patient had 2 endoscopic procedures earlier this month on October 18 and . She states the first was a biopsy, and during the second they placed a drain in the patient's gallbladder. She reports that the patient saw oncology and radiology at the [facility] two days ago, and sees Dr. Shaver locally. She states that the patient is a conditional DNR. The patient denies nausea or vomiting. Source of History: patient, family (daughter), EMS Onset: this morning Position: other (rectum) Quality: other (rectal bleeding) Timing: other (active) Associated Symptoms: + LOC, No nausea, No vomiting Review of Systems See HPI for pertinent positives & negatives. A total of 10 systems reviewed and were otherwise negative. Past Medical & Surgical Medical Problems: (1) A-fib (2) Atrial fibrillation (3) Blood loss anemia (4) Coronary artery disease (5) HTN (hypertension) (6) Kidney disease (7) Pancreatic adenocarcinoma (8) Syncope and collapse Surgical Problems: (1) S/P Family History Patient reports no known family medical history. Social History Smoking Status: Never Smoker Alcohol Use: none Drug Use: none Housing Status: lives with family Current/Historical Medications Scheduled Apixaban (Eliquis), 5 MG PO BID Aspirin (Aspirin Ec), 81 MG PO DAILY Atorvastatin (Lipitor), 40 MG PO DAILY Diltiazem Hcl Coated Beads (Cardizem Cd), 240 MG PO DAILY Epinephrine (Epipen 2-Edu), 1 DOSE INJ PRN UD Insulin Detemir (Levemir), 17 UNITS SC HS Metoprolol Succ (Toprol Xl) (Toprol-Xl), 50 MG PO BID Mupirocin (Bactroban 2% Oint), 0.5 GM EXT BID Scheduled PRN Acetaminophen Tab (Tylenol), 650 MG PO Q6 PRN for Pain Allergies Coded Allergies: BEE STING (Verified Allergy, Severe, anaphylaxis, 11/07/17) ARIS Inhibitors (Verified Allergy, Unknown, UNKNOWN, 11/07/17) Iodine (Verified Allergy, Unknown, 11/07/17) Penicillins (Verified Allergy, Unknown, 11/07/17) Sulfa Drugs (Verified Allergy, Unknown, 11/07/17) Physical Exam Vital Signs Date Time Temp Pulse Resp B/P (MAP) Pulse Ox O2 Delivery O2 Flow Rate FiO2 11/07/17 12:10 36.6 101 17 102/54 98 11/07/17 11:36 113 14 97 Room Air 11/07/17 11:31 100 21 97 Room Air 11/07/17 11:30 100/66 11/07/17 11:28 108/65 11/07/17 11:26 100 21 97 Room Air 11/07/17 11:25 103 11/07/17 11:21 119 17 94 Room Air 11/07/17 11:18 97/64 11/07/17 11:16 104 18 95 Room Air 11/07/17 11:15 97 Room Air 11/07/17 11:09 36.7 113 20 89/54 95 Room Air 11/07/17 11:09 89/54 Physical Exam GENERAL: No distress. Bright red blood noted in her depends and down her legs. HEENT: No acute trauma, normocephalic atraumatic, mucous membranes moist, no nasal congestion, no scleral icterus. NECK: No stridor, no adenopathy, no meningismus, trachea is midline. LUNGS: Clear to auscultation bilaterally, no wheeze, no rhonchi, breath sounds equal. HEART: Tachycardic and irregular. ABDOMEN: Soft, nontender, bowel sounds positive, no hernias, no peritonitis. Percutaneous drain in the left upper quadrant. EXTREMITIES: No cyanosis or edema, full range of motion of all the joints without pain or difficulty, no signs for acute trauma. NEUROLOGIC: Oriented x 3, no acute motor or sensory deficits, no focal weakness. SKIN: No rash, no jaundice, no diaphoresis. Pale. Medical Decision & Procedures ER Provider Diagnostic Interpretation: Radiology results as stated below per my review and radiologist interpretation: SINGLE VIEW CHEST CLINICAL HISTORY: GI bleeding. FINDINGS: An AP, portable, upright chest radiograph is compared to study dated 10/22/2015. The examination is degraded by portable technique and patient rotation. The heart is enlarged and there is atherosclerotic calcification of the thoracic aorta. The pulmonary vascular structures noncongested. Chronic interstitial thickening is similar to previous. Left basilar atelectasis is noted. No airspace consolidation or large pleural effusion is identified. No pneumothorax is seen. The skeletal structures are osteopenic. Advanced degenerative change is seen in the shoulders. An indeterminant catheter projects over the upper abdomen. IMPRESSION: Cardiomegaly with no acute cardiopulmonary abnormality. Electronically signed by: Bret Jaffe M.D. 11/07/2017 12:29 PM Dictated Date/Time: 11/07/2017 12:28 PM Laboratory Results 11/07/17 11:15 Red Blood Count 3.05, Mean Corpuscular Volume 89.5, Mean Corpuscular Hemoglobin 28.9, Mean Corpuscular Hemoglobin Concent 32.2, Mean Platelet Volume 12.3, Neutrophils (%) (Auto) 72.2, Lymphocytes (%) (Auto) 21.6, Monocytes (%) (Auto) 4.8, Eosinophils (%) (Auto) 1.1, Basophils (%) (Auto) 0.2, Neutrophils # (Auto) 6.70, Lymphocytes # (Auto) 2.01, Monocytes # (Auto) 0.45, Eosinophils # (Auto) 0.10, Basophils # (Auto) 0.02 11/07/17 11:15 Test 11/07/17 11:15 White Blood Count 9.29 K/uL (4.8-10.8) Red Blood Count 3.05 M/uL (4.2-5.4) Hemoglobin 8.8 g/dL (12.0-16.0) Hematocrit 27.3 % (37-47) Mean Corpuscular Volume 89.5 fL (80-100) Mean Corpuscular Hemoglobin 28.9 pg (25-34) Mean Corpuscular Hemoglobin Concent 32.2 g/dl (32-36) Platelet Count 204 K/uL (130-400) Mean Platelet Volume 12.3 fL (7.4-10.4) Neutrophils (%) (Auto) 72.2 % Lymphocytes (%) (Auto) 21.6 % Monocytes (%) (Auto) 4.8 % Eosinophils (%) (Auto) 1.1 % Basophils (%) (Auto) 0.2 % Neutrophils # (Auto) 6.70 K/uL (1.4-6.5) Lymphocytes # (Auto) 2.01 K/uL (1.2-3.4) Monocytes # (Auto) 0.45 K/uL (0.11-0.59) Eosinophils # (Auto) 0.10 K/uL (0-0.5) Basophils # (Auto) 0.02 K/uL (0-0.2) RDW Standard Deviation 59.2 fL (36.4-46.3) RDW Coefficient of Variation 18.0 % (11.5-14.5) Immature Granulocyte % (Auto) 0.1 % Immature Granulocyte # (Auto) 0.01 K/uL (0.00-0.02) Red Blood Cell Morphology Unremarkable Prothrombin Time 11.5 SECONDS (9.0-12.0) Prothromb Time International Ratio 1.1 (0.9-1.1) Activated Partial Thromboplast Time 29.6 SECONDS (21.0-31.0) Partial Thromboplastin Ratio 1.1 Anion Gap 9.0 mmol/L (3-11) Est Creatinine Clear Calc Drug Dose 53.9 ml/min Estimated GFR () 67.2 Estimated GFR (Non- 58.0 BUN/Creatinine Ratio 22.0 (10-20) Calcium Level 8.5 mg/dl (8.5-10.1) Magnesium Level 2.0 mg/dl (1.8-2.4) Total Bilirubin 2.0 mg/dl (0.2-1) Aspartate Amino Transf (AST/SGOT) 35 U/L (15-37) Alanine Aminotransferase (ALT/SGPT) 39 U/L (12-78) Alkaline Phosphatase 232 U/L (45-117) Troponin I 0.017 ng/ml (0-0.045) Total Protein 5.4 gm/dl (6.4-8.2) Albumin 2.1 gm/dl (3.4-5.0) Globulin 3.3 gm/dl (2.5-4.0) Albumin/Globulin Ratio 0.6 (0.9-2) Lipase 135 U/L (73-393) Date/Time Source Procedure Growth Status 11/07/17 00:00 Nasal MRSA DNA Surveillance Screen - Final Specimen Negative for MRSA by DNA Probe Complete Laboratory results reviewed by me. Medications Administered Medications (Trade) Dose Ordered Sig/Joan Route Start Time Stop Time Status Last Admin Dose Admin Sodium Chloride 2,000 ml @ 999 mls/hr Q2H1M STAT IV 11/07/17 11:24 11/07/17 13:24 DC 11/07/17 11:10 999 MLS/HR ECG Per My Interpretation Indication: syncope Rate (beats per minute): 126 Rhythm: atrial fibrillation Findings: other (No ST elevations. Nonspecific ST changes.) ED Course 1114: The patient was evaluated in room C4. A complete history and physical exam was performed. 1124: Ordered Sodium Chloride 2000 ml @ 999 mls/hr IV I consulted with HEIDY Blum, who states she will evaluate the patient. I discussed the patient's case with Dr. Harkins - Coagulation Fruit Stuffer. She recommended fresh frozen plasma and blood products, but not Kcentra. I discussed the patient's case with the ICU attending. I consulted Dr. Hilaria Dee Hospitalist. He states that he will accept the patient in the ICU. Medical Decision Differential diagnosis: Coagulopathy, anemia, upper or lower GI bleed, active hemorrhage ,electrolyte imbalance, dehydration There is no leukocytosis. Hemoglobin is low at around 8. No significant electrolyte abnormality, kidney failure or hepatitis. No elevation to the INR. EKG showed a rapid A. fib, no acute ischemic change. Cardiac enzyme testing 1 did not show evidence for acute cardiac injury. Chest x-ray did not show pneumonia or CHF. On exam, the patient was actively bleeding from the rectal area, there was blood on the bed, down her legs and in her underpants. She seemed pale. Her abdomen was not tender. The patient presents with a syncopal spell and active rectal bleeding. She is on Eliquis. She was aggressively managed. The patient had 3 IVs initiated. She was given 2 L of IV saline. She was ordered for blood to be transfused. She was given O- as she required blood emergently. She received 2 units of FFP. I spoke to the coagulation professional employer consultant, I spoke with the deckhand shrimp boat on-call. I spoke with GI. I spoke with the on-call hospitalist. The patient is going to be brought into our facility in the intensive care unit. Patient is not a candidate right now for K Centra as per the coagulation professional employer consultant. Eliquis does not truly have a good reversal agent. The patient's vital signs improved with the fluids, blood and FFP. She was transferred to the intensive care unit. I spoke to her family and to the patient at length about my findings and concerns. Medication Reconcilliation Current Medication List: was personally reviewed by me Blood Pressure Screening Patient's blood pressure: Low blood pressure referred to hospitalist Consults Consulting Physician: HEIDY Blum I consulted with HEIDY Blum, who states she will evaluate the patient. Additional Consults: Consulted Physician: Dr. Harkins - Coagulation Fruit Stuffer Additional Comments: I discussed the patient's case with Dr. Harkins - Coagulation Fruit Stuffer. She recommended fresh frozen plasma and blood products, but not Kcentra. Consulted Physician: Dr. Hilaria Dee Hospitalist Additional Comments: I consulted Dr. Hilaria Dee Hospitalist. He states that he will accept the patient in the ICU. Impression Primary Impression: Hypotension Additional Impressions: Rectal bleeding Coagulopathy Critical Care I have personally spent greater than 45 minutes of critical care time in the direct management of this patient. This includes bedside care, interpretation of diagnostic studies, and testing, discussion with consultants, patient, and family members, and other required patient management activities. This 45 minutes is in excess of all separately billable procedures. Scribe Attestation The scribe's documentation has been prepared under my direction and personally reviewed by me in its entirety. I confirm that the note above accurately reflects all work, treatment, procedures, and medical decision making performed by me. Departure Information Dispostion Being Evaluated By Hospitalist Referrals Gopal Garner M.D. (PCP) Problem Qualifiers
[2017-11-07 17:23] LABS: HEMATOCRIT 24.1 % (37-47)
[2017-11-07] MEDS ORDERED: METOPROLOL TARTRATE 1 MG/ML VIAL ONE (17:38)
[2017-11-07] MEDS ORDERED: CARBOHYDRATES FOR HYPOGLYCEMIA PO PRN (18:15)
[2017-11-07] MEDS ORDERED: GLUCOSE 10 TABS/TUBE PO PRN (18:15)
[2017-11-07] MEDS ORDERED: DEXTROSE 50% 50 ML SYR IV PRN (18:15)
[2017-11-07] MEDS ORDERED: GLUCAGON FOR INJ 1 MG VIAL IM PRN (18:15)
[2017-11-07] MEDS ORDERED: GLUCOSE 40% GEL 15 GM TUBE PO PRN (18:15)
[2017-11-07] MEDS: METOPROLOL TARTRATE 1 MG/ML VIAL IV. SCH (18:27)
[2017-11-07] MEDS: SODIUM CHLORIDE 0.9% 1000ML 1,000 ML IV SCH (18:58)
[2017-11-07] MEDS: BACITRACIN OINT 15 GM TUBE EXT SCH (21:00)
[2017-11-07] MEDS: INSULIN ASPART 100 UNITS/ML 3 ML PEN SC SCH (21:59)
[2017-11-07 22:01] LABS: HEMATOCRIT 25.8 % (37-47); HEMOGLOBIN 8.6 g/dL (12.0-16.0)
--- NOTE | 2017-11-07 22:11 | DIAGNOSTIC IMAGING REPORT ---
NUCLEAR MEDICINE GI BLEEDING SCAN CLINICAL HISTORY: rectal bleeding COMPARISON STUDY: None TECHNIQUE: Following the IV administration of 26.4 mCi of technetium 99m UltraTag labeled red blood cells, nuclear bleeding scan was performed. Anterior flow images were obtained every 2 seconds for a total 48 seconds. Anterior static images were obtained every 5 minutes for a total of 60 minutes. FINDINGS: There is abnormal extraluminal activity within the left upper quadrant. This has a small bowel signature and likely represents proximal jejunum. There is also activity present within the duodenum. Although it duodenal source is statistically most likely, one cannot with certainty exclude a proximal jejunal source with retrograde flow of activity IMPRESSION: 1. Positive GI bleeding scan. Although a duodenal source is suspected, one cannot with certainty exclude a proximal jejunal source. Electronically signed by: Candido Perry M.D. 11/07/2017 10:09 PM Dictated Date/Time: 11/07/2017 9:02 PM
--- NOTE | 2017-11-07 22:43 | Critical Care Progress Note ---
Critical Care Progress Note Date of Service Nov 07, 2017. Critical Care Progress Note Upon return from bleeding scan, the patient was found to be moderately tachycardic with heart rates ranging up into the 140s. Her blood pressures began to drop into the 80s systolically. I did request a repeat H&H while scan was being read. On evaluation of the scan per radiologist report, there is concern for active bleeding in the duodenal area versus jejunal area as well. At this point, I did speak to the on-call Luiz cone examiner. He suggests transfer to tertiary care for further evaluation and likelihood of interventional radiology. I did discuss this with family and patient. At this point, they wish for transfer to [facility] as this is where she has had previous treatment in the past. I personally spoke with providers at the [facility] and arranged for transport. They did accept the patient in transportation, however they were limited as they had no beds. As this is going on, the patient's H&H had dropped compared to earlier today despite 3 units PRBCs. At this point, I did add an additional 2 units PRBCs as well as 2 units FFP. At this point, we will continue to transfuse while we are waiting for transportation pending opening of the bed. Radiological imaging and reports were reviewed by myself. Radiologist's Interpretation as follows: NUCLEAR MEDICINE GI BLEEDING SCAN CLINICAL HISTORY: rectal bleeding COMPARISON STUDY: None TECHNIQUE: Following the IV administration of 26.4 mCi of technetium 99m UltraTag labeled red blood cells, nuclear bleeding scan was performed. Anterior flow images were obtained every 2 seconds for a total 48 seconds. Anterior static images were obtained every 5 minutes for a total of 60 minutes. FINDINGS: There is abnormal extraluminal activity within the left upper quadrant. This has a small bowel signature and likely represents proximal jejunum. There is also activity present within the duodenum. Although it duodenal source is statistically most likely, one cannot with certainty exclude a proximal jejunal source with retrograde flow of activity IMPRESSION: 1. Positive GI bleeding scan. Although a duodenal source is suspected, one cannot with certainty exclude a proximal jejunal source. I have personally spent 45 minutes of critical care time in the direct management of this patient. This is a life/limb threatening event. This includes time spent evaluating patient, direct bedside care, chart review, placing orders, interpretation of diagnostic studies, discussion with consultants, patient, and family members, as well as other required patient management activities. This time is exclusive of all separately billable procedures, and teaching time and separate from and in addition to any other critical care service time.
[2017-11-08] VITALS (23 sets, daily range): BP systolic 70–168; BP diastolic 53–110; PULSE 110–147; TEMP 36.4–36.7; O2SAT 98–100
[2017-11-08] MEDS ORDERED: SODIUM CHLORIDE 0.9% 1000ML 250 ML IV SCH
--- NOTE | 2017-11-08 00:09 | Discharge Instructions ---
Discharge Instructions Date of Service Nov 08, 2017. Admission Reason for Admission: Atrial Fibrillation, Gib, Pancreatic Adenocarcinom Discharge Discharge Diagnosis / Problem: GI bleed, pancreatic cancer Discharge Goals Goal(s): Decrease discomfort, Improve function Activity Recommendations Activity Level: Assistance Required . Additional Information Patient informed of condition: Yes Advance Directives: Yes DNR: No Level of Care: Other (transferring to [facility]) Communicable Disease: No Prognosis: Other (transferring to [facility]) Current Hospital Diet Patient's current hospital diet: Discharge Diet Recommended Diet: N/A (npo) Pending Studies Studies pending at discharge: no Physician Orders On Transfer IV Therapy: iv lopressor iv fluids Additional Orders: PLEASE CHECK MEDICATION RECONCILIATION FOR ACCURATE MED LIST AT DISCHARGE Medical Emergencies . Who to Call and When: Medical Emergencies: If at any time you feel your situation is an emergency, please call 911 immediately. . Non-Emergent Contact Non-Emergency issues call your: Primary Care Provider . . "Provider Documentation" section prepared by Keith Freire. . Core Measure Problem Core Measures: None
[2017-11-08] MEDS: PANTOprazole INJ 40 MG in DEXTROSE 5% 100ML IV SCH ×3 (02:08→08:28)
--- NOTE | 2017-11-08 02:08 | Critical Care Progress Note ---
Critical Care Progress Note Date of Service Nov 08, 2017. Critical Care Progress Note At approximately 1:30 AM, I was contacted by the [facility]. At this point, they state that they will not have available ICU beds for several hours. At this point, I did discuss the transport issues with the family. It was agreed to try and for alternative facility. They request transfer to [place]. At this point, I did speak to the attending provider at [facility] El[place]. In addition, I had to speak with GI providers 2. Eventually, the patient was accepted in transfer. Throughout this, the patient received an additional unit of PRBCs secondary to persistent anemia despite significant transfusion. She continues to have hematochezia with yong clots. She remains tachycardic, however her blood pressures are relatively labile. Eventually, we did make rounds on the patient's blood pressures and were able to provide doses of metoprolol to aid in tachycardia in the setting of A. fib. Patient remains hemodynamically stable. We remain waiting for transportation to [facility] secondary to flight concerns for weather. I have personally spent 45 minutes of critical care time in the direct management of this patient. This is a life/limb threatening event. This includes time spent evaluating patient, direct bedside care, chart review, placing orders, interpretation of diagnostic studies, discussion with consultants, patient, and family members, as well as other required patient management activities. This time is exclusive of all separately billable procedures, and teaching time and separate from and in addition to any other critical care service time.
[2017-11-08 02:37] LABS: BASO % 0.2 %; BASO ABS # 0.01 K/uL (0-0.2); EOS % 1.4 %; EOS ABS # 0.09 K/uL (0-0.5); HEMATOCRIT 24.8 % (37-47); HEMOGLOBIN 8.5 g/dL (12.0-16.0); IG# 0.01 K/uL (0.00-0.02); LYMPH % 31.7 %; LYMPH ABS # 2.04 K/uL (1.2-3.4); MEAN CELL VOLUME 86.7 fL (80-100); MEAN CORPUSCULAR HEMOGLOBIN 29.7 pg (25-34); MEAN CORPUSCULAR HGB CONC 34.3 g/dl (32-36); MONO % 8.1 %; MONO ABS # 0.52 K/uL (0.11-0.59); NEUT % 58.4 %; NEUT ABS # 3.77 K/uL (1.4-6.5); PLATELET COUNT 104 K/uL (130-400); RED CELL DISTRIBUTION WIDTH CV 16.2 % (11.5-14.5); RED CELL DISTRIBUTION WIDTH SD 51.8 fL (36.4-46.3); WHITE BLOOD COUNT 6.44 K/uL (4.8-10.8)
[2017-11-08 03:21] LABS: ALBUMIN 1.9 gm/dl (3.4-5.0); CALCIUM 7.5 mg/dl (8.5-10.1); CREATININE 0.77 mg/dl (0.60-1.20); POTASSIUM 3.6 mmol/L (3.5-5.1); TOTAL PROTEIN 4.3 gm/dl (6.4-8.2)
[2017-11-08 03:22] LABS: PHOSPHORUS 2.4 mg/dl (2.5-4.9)
[2017-11-08] MEDS: METOPROLOL TARTRATE 1 MG/ML VIAL IV. SCH ×2 (04:49→06:25)
--- NOTE | 2017-11-08 08:01 | Progress Note ---
Progress Note Date of Service Nov 08, 2017. Progress Note I was called last evening with the results of the tagged RBC study. The bleeding appears to be from the duodenum likely from her mass or perhaps the gastroduodenal artery. Anatomy is very challenging and I have had prior sprains trying to get an endoscope through to the second portion of the duodenum. This is very difficult and unstable due to her stricture and mass. Please note that they had the same difficulty at the [facility] and were unable to complete procedures there as well. Given this, I believe the patient would be best served by undergoing urgent angiography. The ICU attending and I did discuss this last evening. We could certainly try to do an upper endoscopy today should transfer not be possible.
[2017-11-08] MEDS: SODIUM CHLORIDE 0.9% 1000ML 1,000 ML IV SCH (08:28)
[2017-11-08] MEDS: BACITRACIN OINT 15 GM TUBE EXT SCH (08:29)
[2017-11-08 08:36] LABS: HEMATOCRIT 26.3 % (37-47)
[2017-11-08] MEDS: INSULIN ASPART 100 UNITS/ML 3 ML PEN SC SCH (08:49)
[2017-11-08] MEDS ORDERED: PANTOprazole INJ 40 MG in SYRINGE 0 ML IV SCH (09:00)
[2017-11-08] MEDS ORDERED: CALCIUM CHLORIDE 10% 10 ML SYR ONE (09:27)
[2017-11-08] MEDS ORDERED: NURSING VERBAL MED ORDER ONE (10:00)
--- NOTE | 2017-11-08 11:54 | Discharge Summary ---
Discharge Summary Date of Service Nov 08, 2017. Discharge Summary Admission Date: Nov 07, 2017 at 12:24 Discharge Date: Nov 08, 2017 Discharge Disposition: Acute care facility Principal Diagnosis: Active UGI Bleed Secondary Diagnoses/Problems: Please see H&P and Hospital progress note Procedures: Bleeding scan Consultations: Validation Technician and GI Medication Reconciliation Discontinued Medications: Acetaminophen Tab (Tylenol) 325 Mg Tab 650 MG PO Q6 PRN for Pain Apixaban (Eliquis) 5 Mg Tab 5 MG PO BID Aspirin (Aspirin Ec) 81 Mg Tab 81 MG PO DAILY Atorvastatin (Lipitor) 40 Mg Tab 40 MG PO DAILY Diltiazem Hcl Coated Beads (Cardizem Cd) 240 Mg Cap 240 MG PO DAILY Epinephrine (Epipen 2-Edu) 0.3 Mg Inj 1 DOSE INJ PRN UD Insulin Detemir (Levemir) 100 Units/Ml Inj 17 UNITS SC HS Metoprolol Succ (Toprol Xl) (Toprol-Xl) 50 Mg Tabcr 50 MG PO BID Mupirocin (Bactroban 2% Oint) 66 Appln/22 Gm Oint 0.5 GM EXT BID Admission Information HPI (per Admitting provider): Date & Time of Service: Nov 07, 2017 at 13:00 Chief Complaint: Active Gi Bleed/Syncope Primary Care Physician: Jeison Shaver D.O. History of Present Illness Source: patient, family She is an 82-year-old female with significant past medical history of diabetes type 2 on insulin, paroxysmal atrial fibrillation on Xarelto, history of MS status post stent placement, and also recently diagnosed to adenocarcinoma of the pancreas status post biliary drainage tube placed has been found to be bleeding per rectum this morning. She was feeling unwell in her abdomen and wanted to go to bathroom and felt dizzy while standing and almost about to collapse. She did not lose consciousness but the family member noticed fresh blood pouring down the legs on either side from that point and she was brought into ER for further evaluation. She denied to have any abdominal pain, did have some nausea but no vomiting, denies any chest pain palpitation, she is usually constipated but removed her bowel yesterday and that was normal. In the ER she was noted to be hypotensive and tachycardic with a hemoglobin of 8 from that point the the ER physician did talk to the route inspector, GI provider and anticoagulation specialist for recommendation. She was given intravenous fluid and also going to get fresh frozen plasma and blood transfusion and was transferred to ICU for continued care. Past Medical/Surgical History Medical Problems: (1) A-fib (2) Acute MS, inferior wall (3) Acute MS, lateral wall (4) Acute MS, true posterior wall (5) Atrial fibrillation (6) Atrial fibrillation with RVR (7) Dyspnea on exertion (8) Gastric outlet obstruction (9) GIB (gastrointestinal bleeding) (10) HTN (hypertension) (11) Kidney disease (12) Left arm pain (13) Left sided chest pain (14) Malignant hypertension (15) Pancreatic adenocarcinoma (16) Syncope and collapse (17) UTI (urinary tract infection) (18) Vomiting Surgical Problems: (1) S/P Family History Patient reports no known family medical history. Social History Smoking Status: Never Smoker Smokeless Tobacco Use: No Alcohol Use: occasionally Drug Use: none Marital Status: Housing status: lives with family Immunizations History of Influenza Vaccine: Yes Influenza Vaccine Date: Dec 27, 2011 History of Tetanus Vaccine?: Yes History of Pneumococcal: Yes Pneumococcal Date: Mar 28, 2012 History of Hepatitis B Vaccine: Unknown Allergies Coded Allergies: BEE STING (Verified Allergy, Severe, anaphylaxis, 11/07/17) ARIS Inhibitors (Verified Allergy, Unknown, UNKNOWN, 11/07/17) Iodine (Verified Allergy, Unknown, 11/07/17) Penicillins (Verified Allergy, Unknown, 11/07/17) Sulfa Drugs (Verified Allergy, Unknown, 11/07/17) Home Medications Scheduled Apixaban (Eliquis), 5 MG PO BID Aspirin (Aspirin Ec), 81 MG PO DAILY Atorvastatin (Lipitor), 40 MG PO DAILY Diltiazem Hcl Coated Beads (Cardizem Cd), 240 MG PO DAILY Epinephrine (Epipen 2-Edu), 1 DOSE INJ PRN UD Insulin Detemir (Levemir), 17 UNITS SC HS Metoprolol Succ (Toprol Xl) (Toprol-Xl), 50 MG PO BID Mupirocin (Bactroban 2% Oint), 0.5 GM EXT BID Scheduled PRN Acetaminophen Tab (Tylenol), 650 MG PO Q6 PRN for Pain Review of Systems Constitutional: + weakness, + problem reported (Syncope and [place]) Respiratory: + shortness of breath Cardiovascular: + orthopnea, + problem reported (Syncope and [place]) Abdomen: + nausea, + GI bleeding Neurologic: + weakness, + balance problems Physical Exam Vital Signs Date Time Temp Pulse Resp B/P (MAP) Pulse Ox O2 Delivery O2 Flow Rate FiO2 11/07/17 12:35 36.7 84 16 112/66 11/07/17 12:34 36.7 89 16 112/66 11/07/17 12:10 36.6 101 17 102/54 98 11/07/17 11:36 113 14 97 Room Air 11/07/17 11:31 100 21 97 Room Air 11/07/17 11:30 100/66 11/07/17 11:28 108/65 11/07/17 11:26 100 21 97 Room Air 11/07/17 11:25 103 11/07/17 11:21 119 17 94 Room Air 11/07/17 11:18 97/64 11/07/17 11:16 104 18 95 Room Air 11/07/17 11:15 97 Room Air 11/07/17 11:09 36.7 113 20 89/54 95 Room Air 11/07/17 11:09 89/54 She is an 82-year-old female with significant past medical history of diabetes type 2 on insulin, paroxysmal atrial fibrillation on Xarelto, history of MS status post stent placement, and also recently diagnosed to adenocarcinoma of the pancreas status post biliary drainage tube placed has been found to be bleeding per rectum this morning. She was feeling unwell in her abdomen and wanted to go to bathroom and felt dizzy while standing and almost about to collapse. She did not lose consciousness but the family member noticed fresh blood pouring down the legs on either side from that point and she was brought into ER for further evaluation. She denied to have any abdominal pain, did have some nausea but no vomiting, denies any chest pain palpitation, she is usually constipated but removed her bowel yesterday and that was normal. In the ER she was noted to be hypotensive and tachycardic with a hemoglobin of 8 from that point the the ER physician did talk to the route inspector, GI provider and anticoagulation specialist for recommendation. She was given intravenous fluid and also going to get fresh frozen plasma and blood transfusion and was transferred to ICU for continued care. General Appearance: + moderate distress Head: normocephalic Eyes: + pertinent finding (Pale looking and Jaundiced) Neck: supple Respiratory/Chest: normal breath sounds Cardiovascular: + irregularly irregular Abdomen/GI: + tenderness, + pertinent finding (Has Billiary drainage tube in situ) Back: normal inspection Extremities/Musculoskelatal: + pedal edema Neurologic/Psych: alert, oriented x 3 Skin: + pallor Diagnostics Laboratory Results Results Past 24 Hours Test 11/07/17 11:15 Range/Units White Blood Count 9.29 4.8-10.8 K/uL Red Blood Count 3.05 4.2-5.4 M/uL Hemoglobin 8.8 12.0-16.0 g/dL Hematocrit 27.3 37-47 % Mean Corpuscular Volume 89.5 80-100 fL Mean Corpuscular Hemoglobin 28.9 25-34 pg Mean Corpuscular Hemoglobin Concent 32.2 32-36 g/dl Platelet Count 204 130-400 K/uL Mean Platelet Volume 12.3 7.4-10.4 fL Neutrophils (%) (Auto) 72.2 % Lymphocytes (%) (Auto) 21.6 % Monocytes (%) (Auto) 4.8 % Eosinophils (%) (Auto) 1.1 % Basophils (%) (Auto) 0.2 % Neutrophils # (Auto) 6.70 1.4-6.5 K/uL Lymphocytes # (Auto) 2.01 1.2-3.4 K/uL Monocytes # (Auto) 0.45 0.11-0.59 K/uL Eosinophils # (Auto) 0.10 0-0.5 K/uL Basophils # (Auto) 0.02 0-0.2 K/uL RDW Standard Deviation 59.2 36.4-46.3 fL RDW Coefficient of Variation 18.0 11.5-14.5 % Immature Granulocyte % (Auto) 0.1 % Immature Granulocyte # (Auto) 0.01 0.00-0.02 K/uL Red Blood Cell Morphology Unremarkable Prothrombin Time 11.5 9.0-12.0 SECONDS Prothromb Time International Ratio 1.1 0.9-1.1 Activated Partial Thromboplast Time 29.6 21.0-31.0 SECONDS Partial Thromboplastin Ratio 1.1 Sodium Level 137 136-145 mmol/L Potassium Level 4.0 3.5-5.1 mmol/L Chloride Level 107 98-107 mmol/L Carbon Dioxide Level 21 21-32 mmol/L Anion Gap 9.0 3-11 mmol/L Blood Urea Nitrogen 20 7-18 mg/dl Creatinine 0.92 0.60-1.20 mg/dl Est Creatinine Clear Calc Drug Dose 53.9 ml/min Estimated GFR () 67.2 Estimated GFR (Non- 58.0 BUN/Creatinine Ratio 22.0 10-20 Random Glucose 242 70-99 mg/dl Calcium Level 8.5 8.5-10.1 mg/dl Magnesium Level 2.0 1.8-2.4 mg/dl Total Bilirubin 2.0 0.2-1 mg/dl Aspartate Amino Transf (AST/SGOT) 35 15-37 U/L Alanine Aminotransferase (ALT/SGPT) 39 12-78 U/L Alkaline Phosphatase 232 45-117 U/L Troponin I 0.017 0-0.045 ng/ml Total Protein 5.4 6.4-8.2 gm/dl Albumin 2.1 3.4-5.0 gm/dl Globulin 3.3 2.5-4.0 gm/dl Albumin/Globulin Ratio 0.6 0.9-2 Lipase 135 73-393 U/L Diagnostic Radiology CXR-Cardiomegaly,No CHF and or Infiltrations EKG EKG-AF,Non specific ST-T changes Impression Assessment and Plan Acute GI bleed Likely lower GI and could be diverticular bleed complicated by use of Xarelto Could be upper GI source as well,given the history of pancreatic cancer She will be admitted to ICU Blood transfusion as needed and we will check H&H q. 4 hourly Protonix drip for now GI consultation Atrial fibrillation on Xarelto The rate is controlled now The bleeding may be complicated by general We will hold it for now The case was discussed with Dr. lissett barillas and advised to have fresh frozen plasma and blood as needed Adenocarcinoma the pancreas with status post biliary drainage tube placement Diagnosis in October of this year Has been under evaluation from [facility] Awaiting for future chemotherapy Diabetes type 2 We will hold insulin now Putting her on sliding scale coverage Check hemoglobin A1c CAD status post MS and status post cardiac stent placement No acute symptoms at this time We will start beta-patt and possibly aspirin as soon as possible DVT prophylaxis SCDs CODE STATUS: Full code The case was discussed with the patient and the family members in detail In my clinical assessment the beneficially meets criteria as per CMS for 2 midnight stay in the hospital Resuscitation Status VTE Prophylaxis Will order VTE Prophylaxis: No Reason for no VTE drug order: Contraindicated Reason no Mechanical VTE Order: Treatment not tolerated <Electronically signed by Wayne Manrique M.D.> Signed: 11/07/17 1516 Physical Exam (per Admitting): General Appearance: + moderate distress Head: normocephalic Eyes: + pertinent finding (Pale looking and Jaundiced) Neck: supple Respiratory/Chest: normal breath sounds Cardiovascular: + irregularly irregular Abdomen/GI: + tenderness, + pertinent finding (Has Billiary drainage tube in situ) Back: normal inspection Extremities/Musculoskelatal: + pedal edema Neurologic/Psych: alert, oriented x 3 Skin: + pallor Physical Exam (per Admitting): She is an 82-year-old female with significant past medical history of diabetes type 2 on insulin, paroxysmal atrial fibrillation on Xarelto, history of MS status post stent placement, and also recently diagnosed to adenocarcinoma of the pancreas status post biliary drainage tube placed has been found to be bleeding per rectum this morning. She was feeling unwell in her abdomen and wanted to go to bathroom and felt dizzy while standing and almost about to collapse. She did not lose consciousness but the family member noticed fresh blood pouring down the legs on either side from that point and she was brought into ER for further evaluation. She denied to have any abdominal pain, did have some nausea but no vomiting, denies any chest pain palpitation, she is usually constipated but removed her bowel yesterday and that was normal. In the ER she was noted to be hypotensive and tachycardic with a hemoglobin of 8 from that point the the ER physician did talk to the route inspector, GI provider and anticoagulation specialist for recommendation. She was given intravenous fluid and also going to get fresh frozen plasma and blood transfusion and was transferred to ICU for continued care. Hospital Course Please see H&P Required 7 units of PRBC and 5 units of FFP Active bleeding on scan-requires IR intervention. The patine twas transferred appropriately. Total time spent on discharge = 30 minutes This includes examination of the patient, discharge planning, medication reconciliation, and communication with other providers. Discharge Instructions Date of Service Nov 08, 2017. Admission Reason for Admission: Atrial Fibrillation, Gib, Pancreatic Adenocarcinom Discharge Discharge Diagnosis / Problem: GI bleed, pancreatic cancer Discharge Goals Goal(s): Decrease discomfort, Improve function Activity Recommendations Activity Level: Assistance Required . Additional Information Patient informed of condition: Yes Advance Directives: Yes DNR: No Level of Care: Other ([facility] Communicable Disease: No Prognosis: Other ([facility] to [facility]) Current Hospital Diet Patient's current hospital diet: Discharge Diet Recommended Diet: N/A (npo) Pending Studies Studies pending at discharge: no Physician Orders On Transfer IV Therapy: iv lopressor iv fluids Additional Orders: PLEASE CHECK MEDICATION RECONCILIATION FOR ACCURATE MED LIST AT DISCHARGE Medical Emergencies . Who to Call and When: Medical Emergencies: If at any time you feel your situation is an emergency, please call 911 immediately. . Non-Emergent Contact Non-Emergency issues call your: Primary Care Provider . . "Provider Documentation" section prepared by Keith Freire. . Core Measure Problem Core Measures: None <Electronically signed by Keith Freire MD> Additional Copies To Jeison Shaver D.O.
== END 2017-11-08 10:05 | disposition short-term general hospital (02) | DRG 378 ==
LOC: EDBD 11:06 → C.EDC 11:07 → C.MSICU 12:24 → ENRESERV 12:50
PROVIDERS: ADMIT Internal Medicine; ATTEND Internal Medicine
DX: K92.2 Gastrointestinal hemorrhage, unspecified (principal); C25.9 Malignant neoplasm of pancreas, unspecified; I48.0 Paroxysmal atrial fibrillation; R55 Syncope and collapse; E11.9 Type 2 diabetes mellitus without complications; I10 Essential (primary) hypertension; Z79.01 Long term (current) use of anticoagulants; Z79.4 Long term (current) use of insulin; Z79.82 Long term (current) use of aspirin; Z79.899 Other long term (current) drug therapy; Z88.0 Allergy status to penicillin; Z88.2 Allergy status to sulfonamides